=== PATIENT | male | born 1945 | race Two or more races ===

== ENCOUNTER 2019-05-17 20:32 | Emergency (ER) | payer MEDICARE, MEDICAID ==
[~2019-05-17] VITALS: Ht 182.9 cm; Wt 88.5 kg
[2019-05-17] MEDS ORDERED: IV NS 0.9% 1,000 ML BAG IV ONE (21:00)
[2019-05-17] MEDS ORDERED: FAMOTIDINE/PF INJ 20 MG/2 ML VIAL IV ONE ×2 (21:00→21:11)
[2019-05-17] MEDS ORDERED: KETOROLAC TROMETHAMINE INJ 30 MG/ML VIAL IV ONE (21:00)
[2019-05-17 21:10] LABS: BASOPHILS # (AUTO) 0.1 /CMM (0.0-0.2); BASOPHILS % (AUTO) 0.8 % (0.0-2.0); EOSINOPHILS % (AUTO) 0.8 % (0.0-6.0); HEMATOCRIT 50 % (39-51); HEMOGLOBIN 16.4 g/dL (13.5-17.5); LYMPHOCYTES # (AUTO) 0.9 /CMM (0.8-4.8); LYMPHOCYTES % (AUTO) 9.6 % (20.0-44.0); MEAN CORPUSCULAR HGB CONC 33 g/dl (31.0-36.0); MEAN CORPUSCULAR VOLUME 95 fL (80-96); MONOCYTES # (AUTO) 0.5 /CMM (0.1-1.30); MONOCYTES % (AUTO) 5.6 % (2.0-12.0); NEUTROPHILS # (AUTO) 7.5 /CMM (1.8-8.9); NEUTROPHILS % (AUTO) 83.2 % (43.0-81.0); PLATELET COUNT (AUTO) 140 /CMM (150-450); RED BLOOD CELL COUNT(AUTO) 5.24 MIL/uL (4.5-6.0)
[2019-05-17] MEDS ORDERED: KETOROLAC TROMETHAMINE 15 MG/ML VIAL ONE (21:10)
--- NOTE | 2019-05-17 21:20 | NUR ---
midupper to RUQ abd pain x after eating today, no N/V, no diarrhea, took tagamet w/ no relief. PT AAOX4, VSS. RR EVEN & UNLABORED. DENIES CP, SOB, DIZZINESS @ THIS TIME. PT SEEN & EVAL'D BY DR. GUZMÁN, MEDICATED ORDERED, PT ASHVIN WELL. WILL CONT TO MONITOR.
[2019-05-17 21:22] LABS: CALCIUM, SERUM 9.1 mg/dL (8.5-10.1); CARBON DIOXIDE 32 mmol/L (21-32); CHLORIDE 104 mmol/L (98-107); CREATININE 1.7 mg/dL (0.6-1.3); GLUCOSE 139 mg/dL (74-106); POTASSIUM 4.7 mmol/L (3.5-5.1); SODIUM SERUM 140 mmol/L (136-145); UREA NITROGEN, BLOOD 15 mg/dL (7-18)
[2019-05-17 21:28] LABS: ALANINE AMINOTRANSFERASE 79 U/L (12-78); ALBUMIN 4.1 g/dL (3.4-5.0); ALKALINE PHOSPHATASE 83 U/L (46-116); ASPARTATE AMINOTRANSFERASE 68 U/L (15-37); BILIRUBIN,DIRECT 0.1 mg/dL (0.0-0.2); BILIRUBIN,TOTAL 0.4 mg/dL (0.2-1.0); LIPASE 248 U/L (73-393); TOTAL PROTEIN, SERUM 7.6 g/dL (6.4-8.2)
[2019-05-17] MEDS ORDERED: IOHEXOL-300 100 ML VIAL IV ONE (21:45)
[2019-05-17] MEDS ORDERED: CT SWABBABLE VALVE TRANS SET 1 EA INFUS.SET MC ONE (21:45)
[2019-05-17] MEDS ORDERED: IV NS 0.9% 250 ML IV ONE (21:45)
[2019-05-17 22:34] VITALS: BP 128/80
--- NOTE | 2019-05-17 22:35 | NUR ---
Patient discharged to home in stable condition. Written and verbal after care instructions given. Patient verbalizes understanding of instruction.IV removed. Catheter intact and site benign. Pressure and 4x4 applied to site. No bleeding noted.
== END 2019-05-17 22:35 | disposition home or self-care (01) ==
LOC: ER 20:38
DX: R10.11 Right upper quadrant pain (principal); I10 Essential (primary) hypertension; Z98.890 Other specified postprocedural states; Z88.0 Allergy status to penicillin
CPT/HCPCS: 36415; 80048; 80076; 83690; 84484; 85025; 93005; 96374; 96375; 99284; J1885; J3490; J7030; J7050; Q9967

== ENCOUNTER 2019-07-19 21:57 | Emergency (ER) | payer MEDICARE, OTHER ==
[~2019-07-19] VITALS: Ht 180.3 cm; Wt 85.3 kg
--- NOTE | 2019-07-19 22:16 | NUR ---
BIBWIFE FROM HOME TO ER BED 10. AAOX4. PT NOTED SOB RAPID SHALLOW BREATHING. AMBULATORY. C/O DIFFICULTY BREATHING. PT REPORTS THAT HE WAS AT AN URGENT CARE EARLIER AND WAS FOUNF TO HAVE PNA. PT WAS GIVEN DUONEB X 2 AND A SHOT OF SOLUMEDROL BUT STILL HAVING DIFFICULTY BREATHING THATS WHEN THEY DECIDED TO GO TO THE ER. PT HAVING NOTED WITH PRODUCTIVE COUGH AND PT REPORTS GREENISH SPUTUM. PT WAS NOTED PRESCRIBED ANY ATB FROM URGENT CARE. MD WAS AT BEDSIDE FOR EVAL. AWAITING ORDERS.
[2019-07-19] MEDS ORDERED: AZITHROMYCIN 250 MG TABLET ONE (22:23)
[2019-07-19] MEDS ORDERED: AZITHROMYCIN 250 MG TABLET PO ONE (22:30)
[2019-07-19 22:52] LABS: BASOPHILS % (AUTO) 0.6 % (0.0-2.0); HEMATOCRIT 47 % (39-51); HEMOGLOBIN 15.6 g/dL (13.5-17.5); LYMPHOCYTES # (AUTO) 0.3 /CMM (0.8-4.8); LYMPHOCYTES % (AUTO) 4.4 % (20.0-44.0); MEAN CORPUSCULAR HGB CONC 33 g/dl (31.0-36.0); MEAN CORPUSCULAR VOLUME 93 fL (80-96); MONOCYTES # (AUTO) 0.1 /CMM (0.1-1.30); MONOCYTES % (AUTO) 0.7 % (2.0-12.0); NEUTROPHILS # (AUTO) 7.1 /CMM (1.8-8.9); NEUTROPHILS % (AUTO) 94.3 % (43.0-81.0); PLATELET COUNT (AUTO) 194 /CMM (150-450); RED BLOOD CELL COUNT(AUTO) 5.04 MIL/uL (4.5-6.0); WHITE BLOOD COUNT (AUTO) 7.5 K/uL (4.3-11.0)
[2019-07-19 23:00] LABS: CALCIUM, SERUM 9.1 mg/dL (8.5-10.1); CARBON DIOXIDE 27 mmol/L (21-32); CHLORIDE 104 mmol/L (98-107); CREATININE 1.6 mg/dL (0.6-1.3); GLUCOSE 165 mg/dL (74-106); POTASSIUM 3.9 mmol/L (3.5-5.1); SODIUM SERUM 142 mmol/L (136-145); UREA NITROGEN, BLOOD 22 mg/dL (7-18)
--- NOTE | 2019-07-19 23:35 | NUR ---
Patient discharged to home in stable condition. Written and verbal after care instructions given. Patient verbalizes understanding of instruction. Pt ambulatory with a steady gait
[2019-07-19 23:50] VITALS: BP 141/80
== END 2019-07-19 23:35 | disposition home or self-care (01) ==
LOC: ER 22:02
DX: J18.9 Pneumonia, unspecified organism (principal); J40 Bronchitis, not specified as acute or chronic; I10 Essential (primary) hypertension; Z90.89 Acquired absence of other organs; Z88.0 Allergy status to penicillin
CPT/HCPCS: 36415; 80048-TC; 85025-TC

== ENCOUNTER 2019-10-30 14:45 | Inpatient (IN) | payer OTHER ==
[~2019-10-30] VITALS: Ht 182.9 cm; Wt 86.7 kg
--- NOTE | 2019-10-30 14:55 | NUR ---
PT BIB SELF C/O R LEG PAIN AND SWELLING FOR 3 DAYS, PT IS AAOX4, NOT IN RESPIRATORY DISTRESS, HOOKED TO MONITOR, KEPT RESTED AND COMFORTABLE, WILL CONTINUE TO MONITOR.
--- NOTE | 2019-10-30 15:00 | NUR ---
AT BEDSIDE FOR EVAL.
--- NOTE | 2019-10-30 15:15 | NUR ---
ER PHLEB AT BEDSIDE FOR BLOOD DRAW.
[2019-10-30 15:27] LABS: BASOPHILS # (AUTO) 0.1 /CMM (0.0-0.2); BASOPHILS % (AUTO) 1.2 % (0.0-2.0); EOSINOPHILS % (AUTO) 3.4 % (0.0-6.0); HEMATOCRIT 47 % (39-51); HEMOGLOBIN 15.6 g/dL (13.5-17.5); LYMPHOCYTES # (AUTO) 1.1 /CMM (0.8-4.8); LYMPHOCYTES % (AUTO) 16.8 % (20.0-44.0); MEAN CORPUSCULAR HGB CONC 33 g/dl (31.0-36.0); MEAN CORPUSCULAR VOLUME 94 fL (80-96); MONOCYTES # (AUTO) 0.8 /CMM (0.1-1.30); MONOCYTES % (AUTO) 12.1 % (2.0-12.0); NEUTROPHILS # (AUTO) 4.3 /CMM (1.8-8.9); NEUTROPHILS % (AUTO) 66.5 % (43.0-81.0); PLATELET COUNT (AUTO) 101 /CMM (150-450); RED BLOOD CELL COUNT(AUTO) 5.02 MIL/uL (4.5-6.0); WHITE BLOOD COUNT (AUTO) 6.5 K/uL (4.3-11.0)
[2019-10-30 15:38] LABS: ALANINE AMINOTRANSFERASE 54 U/L (12-78); ALBUMIN 3.9 g/dL (3.4-5.0); ALKALINE PHOSPHATASE 107 U/L (46-116); ASPARTATE AMINOTRANSFERASE 50 U/L (15-37); BILIRUBIN,DIRECT 0.1 mg/dL (0.0-0.2); BILIRUBIN,TOTAL 0.6 mg/dL (0.2-1.0); CALCIUM, SERUM 8.5 mg/dL (8.5-10.1); CARBON DIOXIDE 28 mmol/L (21-32); CHLORIDE 104 mmol/L (98-107); CREATININE 1.6 mg/dL (0.6-1.3); GLUCOSE 118 mg/dL (74-106); POTASSIUM 3.8 mmol/L (3.5-5.1); SODIUM SERUM 139 mmol/L (136-145); TOTAL PROTEIN, SERUM 7.4 g/dL (6.4-8.2); UREA NITROGEN, BLOOD 19 mg/dL (7-18)
--- NOTE | 2019-10-30 15:48 | NUR ---
TECH AT BEDSIDE FOR US.
[2019-10-30] MEDS ORDERED: ENOXAPARIN SODIUM 100 MG/ML DISP.SYRIN SQ ONE (16:58)
[2019-10-30] MEDS ORDERED: ENOXAPARIN SODIUM 80 MG/0.8 ML DISP.SYRIN SQ ONE (17:00)
--- NOTE | 2019-10-30 18:22 | NUR ---
PAGED [facility] FOR [facility]I FOR ADMISSION.
--- NOTE | 2019-10-30 18:30 | NUR ---
CALLED HOUSE SUP FOR MED SURG BED.
--- NOTE | 2019-10-30 18:37 | NUR ---
NURSING RISK PROFESSIONAL GAVE ROOM 322 BED 1.
[2019-10-30] MEDS ORDERED: IV NS 0.9% 1,000 ML IV PRN ×2 (18:39→19:30)
--- NOTE | 2019-10-30 18:40 | NUR ---
REPORT GIVEN TO DANNY ESPINOZA FOR [facility]AN[facility].
[2019-10-30] MEDS ORDERED: MORPHINE SULFATE INJ 2 MG/ML DISP.SYRIN IV PRN (19:00)
[2019-10-30] MEDS ORDERED: MAGNESIUM HYDROXIDE 30 ML UDC PO PRN (19:00)
[2019-10-30] MEDS ORDERED: ONDANSETRON HCL/PF 4 MG/2 ML VIAL IVP PRN (19:00)
[2019-10-30] MEDS ORDERED: HYDROCODONE/APAP 5/325MG 1 EACH TABLET PO PRN (19:00)
[2019-10-30] MEDS ORDERED: ACETAMINOPHEN 325 MG TABLET PO PRN (19:00)
[2019-10-30] MEDS ORDERED: ZOLPIDEM TARTRATE 5 MG TABLET PO PRN (19:00)
[2019-10-30] MEDS ORDERED: Z GUARD REMEDY 2 OZ OINT TP PRN (19:00)
[2019-10-30] MEDS ORDERED: MAG HYDROX/AL HYDROX/SIMETH 30 ML UDC PO PRN (19:00)
--- NOTE | 2019-10-30 19:30 | NUR ---
MS COMMERCIAL CONSTRUCTION ESTIMATOR NOTES RECEIVED FROM ER PER ODESSA THIS 74 YO OLD MALE,WITH DIAGNOSIS OF RIGHT LEG POSITIVE DVT,NOTED SWELLING WITH PAIN 7/10 ON PAIN SCALE.ELEVATED ON PILLOWS.ALERT,ORIENTED X4,NO SOB,SPEAK TAGALOG/SINGAPOREAN.SALINE LOCK LEFT AC INTACT AND PATENT.WITH KNOWN ALLERGY TO PENICILLIN.WITH KNOWN HX OF GOUTY ARTHRITIS,HTN.FLU/PNA VACCINES CURRENT.BED REST EMPHASIZED,URINAL AT BEDSIDE.CALL LIGHT IN REACH,NEEDS ANTICIPATED.
[2019-10-30 20:00] VITALS: BP 121/75
--- NOTE | 2019-10-30 20:00 | NUR ---
MS RN NOTES FEELING HUNGRY,TUNA SANDWICH PROVIDED.
--- NOTE | 2019-10-30 20:23 | NUR ---
MS RN NOTES STARTED ON NS 1LITER AT 75ML/HR RATE INFUSING VIA IV PUMP ON LEFT AC SALINE LOCK.
[2019-10-30] MEDS ORDERED: LISI2.5T2 PO (22:05)
[2019-10-30] MEDS ORDERED: SIMV-46 PO (22:05)
[2019-10-30] MEDS ORDERED: OMEP20CA15 PO (22:05)
[2019-10-30] MEDS ORDERED: COLC0.6C3 PO (22:05)
[2019-10-30] MEDS ORDERED: MECL-159 PO (22:05)
[2019-10-30] MEDS ORDERED: ATEN50TA PO (22:05)
[2019-10-30] MEDS ORDERED: DOXA2TAB2 PO (22:05)
[2019-10-30] MEDS ORDERED: MECLIZINE HCL 25 MG TABLET PO PRN (23:30)
[2019-10-30] MEDS ORDERED: DOXAZOSIN MESYLATE (1 MG) 1 MG TABLET PO SCH (23:30)
--- NOTE | 2019-10-31 02:00 | NUR ---
MS RN NOTES SLEEPING,KEPT WARM AND COMFORTABLE.
--- NOTE | 2019-10-31 06:05 | NUR ---
MS RN NOTES SLEPT WELL,NO COMPLAINTS OF PAIN ON RIGHT LEG.MED RECON DONE,RECONCILED BY HOSPITALIST NICOLE.ON LOVENOX FOR DVT PROPHYLAXIS.IN NO ACUTE DISTRESS.WILL ENDORSE TO GARIMA DELGADO FOR BLANCA
[2019-10-31 07:18] LABS: BASOPHILS # (AUTO) 0.1 /CMM (0.0-0.2); EOSINOPHILS % (AUTO) 4.4 % (0.0-6.0); HEMATOCRIT 44 % (39-51); HEMOGLOBIN 14.4 g/dL (13.5-17.5); LYMPHOCYTES # (AUTO) 1.6 /CMM (0.8-4.8); LYMPHOCYTES % (AUTO) 28.8 % (20.0-44.0); MEAN CORPUSCULAR HGB CONC 33 g/dl (31.0-36.0); MEAN CORPUSCULAR VOLUME 93 fL (80-96); MONOCYTES # (AUTO) 0.6 /CMM (0.1-1.30); MONOCYTES % (AUTO) 11.2 % (2.0-12.0); NEUTROPHILS # (AUTO) 2.9 /CMM (1.8-8.9); NEUTROPHILS % (AUTO) 54.6 % (43.0-81.0); PLATELET COUNT (AUTO) 98 /CMM (150-450); RED BLOOD CELL COUNT(AUTO) 4.76 MIL/uL (4.5-6.0); WHITE BLOOD COUNT (AUTO) 5.4 K/uL (4.3-11.0)
[2019-10-31] MEDS ORDERED: PANTOPRAZOLE 40 MG TABLET.DR PO SCH (07:30)
[2019-10-31 07:33] LABS: CHOLESTEROL 157 mg/dL (<200); HDL CHOLESTEROL 43 mg/dL (40-60); LDL 96 mg/dL (0-99); THYROID STIMULATING HORMONE 2.761 uIU/mL (0.358-3.74); TRIGLYCERIDES 130 mg/dL (30-150)
[2019-10-31 07:34] LABS: ALANINE AMINOTRANSFERASE 48 U/L (12-78); ALBUMIN 3.4 g/dL (3.4-5.0); ALKALINE PHOSPHATASE 82 U/L (46-116); ASPARTATE AMINOTRANSFERASE 43 U/L (15-37); BILIRUBIN,TOTAL 0.7 mg/dL (0.2-1.0); CALCIUM, SERUM 8.5 mg/dL (8.5-10.1); CARBON DIOXIDE 26 mmol/L (21-32); CHLORIDE 107 mmol/L (98-107); CREATININE 1.5 mg/dL (0.6-1.3); GLUCOSE 103 mg/dL (74-106); MAGNESIUM 1.9 mg/dL (1.8-2.4); PHOSPHORUS 3.2 mg/dL (2.5-4.9); POTASSIUM 3.6 mmol/L (3.5-5.1); SODIUM SERUM 143 mmol/L (136-145); TOTAL PROTEIN, SERUM 6.6 g/dL (6.4-8.2); UREA NITROGEN, BLOOD 19 mg/dL (7-18)
--- NOTE | 2019-10-31 07:57 | NUR ---
MS/RN Opening note Patient received from systems coordinator. A/O X4, vital signs within normal range for patient. Right leg remains with edema, elevated on pillow, per patient swelling is better than last night. Remains in street clothes, offered gown but refusing at this time. Call light within reach, will continue to monitor and ensure safety.
[2019-10-31 08:00] VITALS: BP 116/74
[2019-10-31 08:14] LABS: BAND % (MANUAL) 1 % (0.0-5.0); EOSINOPHILS % (MANUAL) 4 % (0-4); LYMPHOCYTES % (MANUAL) 30 % (16-48); MONOCYTES % (MANUAL) 11 % (0-11.0); NEUTROPHILS % (MANUAL) 54 (42-76)
[2019-10-31 08:31] VITALS: BP 116/74
[2019-10-31] MEDS ORDERED: ENOXAPARIN SODIUM 80 MG/0.8 ML DISP.SYRIN SQ SCH (09:00)
[2019-10-31] MEDS ORDERED: ATENOLOL 50 MG TABLET PO SCH (09:00)
--- NOTE | 2019-10-31 09:01 | NUR ---
MS/RN S/B Elia [employer] Seen by [employer] - CT scan chest to be ordered for further evaluation.
--- NOTE | 2019-10-31 10:00 | NUR ---
MS/RN Heplock New heplock inserted per patient request - R wrist 18g.
--- NOTE | 2019-10-31 11:02 | NUR ---
MS/RN CT chest CT chest shows small peribronchial consolidations in bilateral lung apices, worse on the right side. Recommend follow up CT in six months.
--- NOTE | 2019-10-31 12:30 | NUR ---
MS/RN S/B Eddie Rodrigez PRINCIPAL INVESTIGATOR Seen by PRINCIPAL INVESTIGATOR - discussed the results of the CT scan and the need to follow up for repeat scan in six months. Patient able to be discharged to home today with prescription for xarelto 10mg BID.
[2019-10-31] MEDS ORDERED: RIVA10TA PO (12:48)
--- NOTE | 2019-10-31 14:36 | NUR ---
MS/home furnishings sales representative All discharge paperwork signed by patient, copies provided along with copy of medical record and disc with all images. Heplock and name bands removed.
[2019-10-31] MEDS ORDERED: SIMVASTATIN 20 MG TABLET PO SCH (22:00)
== END 2019-10-31 16:30 | disposition home or self-care (01) | DRG 299 ==
LOC: ER 14:45 → MED 18:48
PROVIDERS: ADMIT Nurse Practitioner Acute Care; ATTEND Nurse Practitioner Acute Care
DX: I82.411 Acute embolism and thrombosis of right femoral vein (principal); N17.0 Acute kidney failure with tubular necrosis; M10.9 Gout, unspecified; I10 Essential (primary) hypertension; E89.0 Postprocedural hypothyroidism; Z79.01 Long term (current) use of anticoagulants; Z88.0 Allergy status to penicillin; R73.9 Hyperglycemia, unspecified
CPT/HCPCS: 36415; 71046; 71250-TC; 80048-TC; 80053-TC; 80061-TC; 80076-TC; 83735-TC; 84100-TC; 84443-TC; 85025-TC; 85730-TC; 87081-TC; 93970-TC; G0378; J1650; J7030; J8597